=== PATIENT | female | born 1990 | race Caucasian/White ===

== ENCOUNTER 2017-03-07 13:25 | Emergency (ER) | payer SELFPAY ==
[2017-03-07 13:51] VITALS: BP 116/70
--- NOTE | 2017-03-07 14:01 | UC ---
Complaint Female HPI - HPI Summary HPI Summary: Patient has had increased pain on left labia, there is a large induration felt. no unusual drainage noted. - History Of Current Complaint Chief Complaint: UCGU Stated Complaint: URINARY Time Seen by Provider: 03/07/17 13:50 Hx Obtained From: Patient Hx Last Menstrual Period: March Onset/Duration: Sudden Onset, Lasting Days Timing: Constant Severity Initially: Mild Severity Currently: Moderate Aggravating Factor(s): Movement, [place], Other - sitting Alleviating Factor(s): Position - Allergies/Home Medications Allergies/Adverse Reactions: Allergies Allergy/AdvReac Type Severity Reaction Status Date / Time No Known Allergies Allergy Verified 03/07/17 13:51 Home Medications: Home Medications Oral Contraceptive DAILY 03/07/17 [History] PMH/Surg Hx/FS Hx/Imm Hx Previously Healthy: Yes GI/ History: Other - procedure 02/27 Other GI/ History: 02/27 - Surgical History Surgical History: None - Family History Known Family History: Positive: Hypertension - Social History Alcohol Use: None Substance Use Type: Marijuana Smoking Status (MU): Never Smoked Tobacco Type: Cigarettes Amount Used/How Often: RARELY IN THE PAST 6 MOS Length of Time of Smoking/Using Tobacco: 1-2 YRS. Review of Systems Constitutional: Negative Skin: Negative Eyes: Negative ENT: Negative Respiratory: Negative Cardiovascular: Negative Gastrointestinal: Negative Genitourinary: Dysuria, Vaginal/Penile Pain Motor: Negative Neurovascular: Negative Musculoskeletal: Negative Neurological: Negative Psychological: Negative Is Patient Immunocompromised?: No All Other Systems Reviewed And Are Negative: Yes Physical Exam Triage Information Reviewed: Yes Appearance: Well-Appearing, Pain Distress, Obese Vital Signs: Initial Vital Signs Temp 98.4 F 03/07/17 13:46 Pulse 78 03/07/17 13:46 Resp 16 03/07/17 13:46 BP 116/70 03/07/17 13:46 Pulse Ox 100 03/07/17 13:46 Vital Signs Reviewed: Yes Eye Exam: Normal ENT Exam: Normal Dental Exam: Normal Neck exam: Normal Neck: Positive: Supple, Nontender, No Lymphadenopathy Respiratory Exam: Normal Respiratory: Positive: Chest non-tender, Lungs clear, Normal breath sounds Cardiovascular Exam: Normal Cardiovascular: Positive: RRR, No Murmur, Pulses Normal Abdominal Exam: Normal Abdomen Description: Positive: Nontender, No Organomegaly, Soft, Other: - visual exam of the labia reveals a large induration of left labia, no pustule or drainage noted. Bowel Sounds: Positive: Present Musculoskeletal Exam: Normal Musculoskeletal: Positive: Strength Intact, ROM Intact, No Edema Neurological Exam: Normal Neurological: Positive: Alert, Muscle Tone Normal Psychological Exam: Normal Skin Exam: Normal Complaint Female Dx - Course Course Of Treatment: hx obtained, exam performed ,meds reviewed, visualization of the gland is obvious, no unusual drainage, are is red and swollen. UA not obtained due to pt, inability to urinate. - Differential Dx/Diagnosis Differential Diagnosis/HQI/PQRI: Bartholin Cyst, Sexually Transmitted Disease, Urinary Tract Infection, Other - vagninitis Provider Diagnoses: bartholian abcess left Discharge - Discharge Plan Condition: Stable Disposition: HOME Patient Education Materials: Bartholin Cyst (ED) Referrals: Non Staff,Doctor [Primary Care Provider] - Additional Instructions: 1. take the medication as prescribed. 2. Increase fluid intake 3. Warm water soaks three tome a day. 4. keep are clean and dry. 5. If not improving in the next 48 hours, return for evaluation. 6. control is not as effective when on antibiotics, use alternate methods.
[2017-03-07] MEDS ORDERED: Sulfamethox/Trimethoprim DS 800/160* TAB PO ONE (14:16)
== END 2017-03-07 14:24 | disposition home or self-care (01) ==
LOC: UCCORT 13:25
DX: N75.1 Abscess of Bartholin's gland (principal); F12.90 Cannabis use, unspecified, uncomplicated
CPT/HCPCS: 99203; A9270-GY; G0463